=== PATIENT | male | born 1945 | race Caucasian/White ===

== ENCOUNTER → 2017-08-25 11:51 | Day surgery (SDC) | payer BC ==
[~2017-08-25 11:51] MED LIST: Flumazenil* 0.1 MG/ML 5 ML MDV ONE; Lidocaine 1% INJ* 10 MG/ML 30 ML SDV ONE; Midazolam* 1 MG/ML 10 ML VIAL (10 MG) ONE; Naloxone* 0.4 MG/ML 1 ML VIAL ONE; ceFAZolin 1 GM/10 ML flush(*) SYRINGE for pocket flush (cardiology) FLUSH ONE; ceFAZolin 2 GM PREMIX (*) 2 GM/50 ML BAG IVPB ONE; ceFAZolin 2 GM in NS PREMIX(*) 2 GM/100 ML BAG IVPB ONE; fentaNYL* 50 MCG/ML 2 ML VIAL (100 MCG VIAL) ONE
--- NOTE | 2017-08-27 02:43 | OP ---
CC: Jamee Jamison MD * DATE OF OPERATION: 08/25/17 - [facility] CATH DATE OF : 43 SURGEON: Cristhian Neal MD ANESTHESIA: Local anesthesia with conscious sedation. PRE-OP DIAGNOSES: ICD at elective replacement indicator, cardiomyopathy. POST-OP DIAGNOSES: ICD at elective replacement indicator, cardiomyopathy. OPERATIVE PROCEDURE: Dual-chamber ICD generator change. ESTIMATED BLOOD LOSS: Nil. COMPLICATIONS: None. INDICATIONS: The patient is a 72-year-old gentleman with a history of cardiomyopathy, history of ICD implantation in 2009. The patient has been followed by Dr. Jamison. The patient's ICD reached elective replacement indicator and generator change was recommended. DESCRIPTION OF PROCEDURE: The patient was brought to the operating room in a fasting state. Informed consent had been obtained prior to the procedure. All labs were reviewed. The patient was placed supine on the procedure table. His left deltopectoral area was cleaned and draped in the usual fashion. 1% lidocaine was used for local anesthesia. A 4 cm incision was made just superior to the ICD and blunt dissection was carried down to the fiber sheath and fiber sheath was opened and the device was removed from the pocket. The device was detached from the atrial and ventricular leads. The explanted device is a Medtronic model H805XXF, serial number [id number]. The leads were tested. The atrial lead had a P-wave sensitivity of 3.4, impedance 412 Ohms, threshold 0.9 volts at 0.5 msec. The ventricular lead and an R-wave sensitivity of 10.9, impedance 595 Ohms, threshold 0.7 volts at 0.5 milliseconds. A new generator was attached appropriately to the atrial ventricular leads. The new generator is a Medtronic model [id number], serial number [id number]. Device was placed in the pocket. The surgical incision was closed in three layers. The patient was returned to holding area in stable condition. [id number]/[facility] #: [id number] [facility]
== END | disposition home or self-care (01) ==
LOC: CHICATH 11:51
PROVIDERS: ATTEND Specialist
DX: Z45.02 Encounter for adjustment and management of automatic implantable cardiac defibrillator (principal); I42.9 Cardiomyopathy, unspecified; I47.2 Ventricular tachycardia; G47.33 Obstructive sleep apnea (adult) (pediatric); R55 Syncope and collapse; R60.9 Edema, unspecified; E78.2 Mixed hyperlipidemia; I10 Essential (primary) hypertension; I25.10 Atherosclerotic heart disease of native coronary artery without angina pectoris; I25.2 Old myocardial infarction; I71.2 Thoracic aortic aneurysm, without rupture; Z87.891 Personal history of nicotine dependence
CPT/HCPCS: 33263; 88300; C1721; J0690; J2250; J2310; J3010

== ENCOUNTER 2017-12-15 06:31 | Observation (INO) | payer BC ==
--- NOTE | 2017-12-12 02:22 | HP ---
CC: Dr. Fuentes * HISTORY AND PHYSICAL: DATE OF PLANNED ADMISSION AND SURGERY: 12/15/17 HISTORY OF PRESENT ILLNESS: Mr. Gonzalez is a 72-year-old white male, who is admitted with prostate enlargement, bladder outlet obstruction, recurrent episodes of prostatitis, for cystoscopy and transurethral resection of the prostate. I have been following Mr. Gonzalez for the last 13 years because of prostate enlargement and bladder outlet obstruction. In 2006, he was started on finasteride and has been maintained on both finasteride and tamsulosin for many years. He was doing fine until about 2 years ago when he started having recurrent episodes of acute prostatitis. He required several courses of antibiotics for treatment of the condition. The last episode occurred 3 months ago and again required a prolonged course of Bactrim. He was worked up with a cystoscopy, which showed a large obstructing prostate. Renal ultrasound was normal. Postvoid bladder ultrasound showed minimal postvoid residual. Because of the above history, the symptoms of bladder outlet obstruction but mostly because of the recurrent episodes of urinary tract infections in spite of being on full medical treatment for his prostate enlargement and obstruction , TURP was advised and accepted. PAST MEDICAL HISTORY AND SYSTEM REVIEW: The patient has a history of coronary artery disease and had required stents placement in 2006. He also had history of arrhythmias and syncope and has an AICD placed. He is followed by Dr. Jamison. He was seen in preoperative consultation and was cleared by Dr. Jamison and I am including a copy of her consultation note in the chart. Dr. Jamison feels that he is good a surgical candidate for the procedure without any additional cardiac workup or treatment. Regarding the AICD, she recommended placement of a magnet during the procedure to have it temporarily deactivated. The patient has history of hypertension and sleep apnea. MEDICATIONS: He is maintained on the following medications: 1. Losartan 50 mg daily. 2. Metoprolol 25 mg daily. 3. Nifedical 30 mg daily. 4. Aspirin 81 mg daily. In addition to the finasteride 5 mg and tamsulosin 0.4 mg daily. ALLERGIES: He reports having a reaction or allergy to NITROGLYCERIN and to HIGH - DOSE BETA BLOCKERS. PHYSICAL EXAMINATION GENERAL: Pleasant and healthy looking for his age. VITAL SIGNS: Blood pressure 130/70, pulse of 70, oxygen saturation on room air 98%. LUNGS: Clear. HEART: Regular and rhythmic. No murmurs. ABDOMEN: Soft. No masses. No tenderness and no CVA tenderness. EXTERNAL GENITALIA: Normal. RECTAL: Showed a moderately enlarged prostate with a nodule in the right lobe, but no induration. IMPRESSION: 1. Prostate enlargement and bladder outlet obstruction with recurrent episodes of prostatitis while on medical treatment. 2. Coronary artery disease, status post coronary stents in 2006. 3. History of ventricular arrhythmias, on beta blockers and status post placement of automatic implantable cardioverter-defibrillator. 4. Sleep apnea. 5. Hyperlipidemia. PLAN: For cystoscopy and transurethral resection of the prostate. I discussed the above plans in detail with the patient. Cardiology consultation was obtained and I am including a copy of Dr. Jamison's note with her recommendations especially regarding the AICD management. [id number]/[facility] #: [id number] [facility]
[~2017-12-15 06:31] MED LIST changes: +Buffered Lidocaine 0.9% SYRIN* 5 ML/SYR SYRINGE INTRADERM ONE; -Flumazenil* 0.1 MG/ML 5 ML MDV ONE; -Lidocaine 1% INJ* 10 MG/ML 30 ML SDV ONE; -Midazolam* 1 MG/ML 10 ML VIAL (10 MG) ONE; -Naloxone* 0.4 MG/ML 1 ML VIAL ONE; -ceFAZolin 1 GM/10 ML flush(*) SYRINGE for pocket flush (cardiology) FLUSH ONE; -ceFAZolin 2 GM PREMIX (*) 2 GM/50 ML BAG IVPB ONE; -ceFAZolin 2 GM in NS PREMIX(*) 2 GM/100 ML BAG IVPB ONE; -fentaNYL* 50 MCG/ML 2 ML VIAL (100 MCG VIAL) ONE
[2017-12-15] MEDS ORDERED: Lidocaine 2% PF * 5 ML VIAL ONE (07:15)
[2017-12-15] MEDS ORDERED: Midazolam* 1 MG/ML 5 ML VIAL (5 MG) ONE (07:15)
[2017-12-15] MEDS ORDERED: fentaNYL* 50 MCG/ML 2 ML VIAL (100 MCG VIAL) ONE (07:15)
[2017-12-15] MEDS ORDERED: Bupivacaine-MPF SPINAL* 7.5 MG/ML - 2ML AMP ONE (07:15)
[2017-12-15] MEDS ORDERED: cefTRIAXone(*) 2 GM ADDV.VIAL IVPB ONE (07:19)
[2017-12-15] MEDS ORDERED: EPHEDrine (Pressors)* 50 MG/ML VIAL ONE (07:59)
[2017-12-15] MEDS ORDERED: fentaNYL* 50 MCG/ML 2 ML VIAL (100 MCG VIAL) IV PRN (08:55)
[2017-12-15] MEDS ORDERED: oxyCODONE TAB* 5 MG TAB PO PRN (08:55)
[2017-12-15] MEDS ORDERED: Acetaminophen TAB* 325 MG PO PRN (08:55)
[2017-12-15] MEDS ORDERED: Naloxone* 0.4 MG/ML 1 ML VIAL IV PRN (08:55)
[2017-12-15] MEDS ORDERED: oxyCODONE/Acetamin 5/325 MG* TAB PO PRN (11:51)
[2017-12-15] MEDS ORDERED: Metoprolol Succinate XL TAB* 25 MG PO SCH (21:00)
[2017-12-15] MEDS ORDERED: Atorvastatin* 80 MG TAB PO SCH (21:00)
[2017-12-15] MEDS ORDERED: Losartan TAB* 25 MG PO SCH (21:00)
[2017-12-15] MEDS ORDERED: Finasteride TAB* 5 MG PO SCH (21:00)
[2017-12-15] MEDS ORDERED: NIFEdipine ER TAB* 30 MG PO SCH (21:00)
[2017-12-15] MEDS: Lidocaine 2% JELLY* 6 ML JELLY TOPICAL PRN (21:39)
[2017-12-16] MEDS: Lidocaine 2% JELLY* 6 ML JELLY TOPICAL PRN (00:31)
[2017-12-16] MEDS: Oxybutynin TAB* 5 MG PO PRN ×2 (03:08→09:46)
--- NOTE | 2017-12-16 03:24 | OP ---
CC: Dr. Fuentes * DATE OF OPERATION: 12/15/17 - ROOM #350 DATE OF : 43 SURGEON: Nawaf Mota MD ANESTHESIOLOGIST: Dr. Aston Goodman. ANESTHESIA: Spinal. PRE-OP DIAGNOSES: 1. Benign prostatic hyperplasia. 2. Bladder outlet obstruction due to above. 3. Recurrent episodes of prostatitis. POST-OP DIAGNOSES: 1. Benign prostatic hyperplasia. 2. Bladder outlet obstruction due to above. 3. Recurrent episodes of prostatitis. OPERATIVE PROCEDURE: 1. Cystoscopy. 2. Transurethral resection of the prostate. INDICATIONS FOR PROCEDURE: Mr. Gonzalez is a 72-year-old white male who has a long history of bladder outlet obstruction and prostate enlargement and has been maintained on tamsulosin and finasteride. Over the last 2 years, he has had recurrent episodes of acute prostatitis requiring several antibiotic courses. Cystoscopy showed large obstructing prostate. Postvoid bladder ultrasound showed minimal residual urine. Because of the above history, the obstructive symptoms, and mostly the recurrent episodes of urinary tract infections in spite of being on full medical treatment, TURP was advised and accepted. PATHOLOGY AT CYSTOSCOPY: The penile and bulbar urethrae looked normal. The prostatic urethra measured 3 cm in length and there was significant degree of obstruction by trilobar hyperplasia of the prostate with prominent median lobe and obstructing lateral lobes. Examination of the bladder showed moderate diffuse trabeculations. There were no suspicious bladder lesion seen. No calculi or diverticula were noted. The prostate adenoma was moderately avascular. DESCRIPTION OF PROCEDURE: After successful spinal anesthesia, the patient was placed in the lithotomy position and was prepped and draped for cystoscopy. Cystoscopy was performed. The bladder was carefully inspected and the above findings were noted. The resectoscope was then introduced inside the bladder. Mannitol sorbitol solution was used for irrigation and the inflow and outflow were adjusted to avoid overdistention of the bladder. The median lobe was resected first down to the level of the posterior bladder neck. The portions of the lateral lobes protruding inside the bladder neck were then resected circumferentially down to bladder neck fibers. The resectoscope was then positioned in the mid prostatic urethra and circumferential resection of the prostate adenoma tissue was then performed. The resectoscope was then positioned at the level of the veru. The left lateral lobe was then resected starting at 5 o'clock and proceeding anteriorly. The right lobe was resected next. The anterior tissue and the apical tissue were resected last. The bleeders were electrocoagulated and controlled. The limits of the resection were the bladder neck proximally, the veru distally, and the capsule circumferentially. The resected prostate tissue was then irrigated out and evacuated. At the completion of the resection, the prostatic fossa was wide open. The external sphincter, the veru, the capsule, the ureteral orifices, and the bladder wall were all intact. There was good hemostasis. There were no residual prostate chips in the bladder. There were no deep cuts into the capsule and no open sinuses and a very good hemostasis. The resectoscope was then removed and a size 22-[place] Polanco catheter was passed inside the bladder and the balloon inflated with 40 cc of water and the catheter was placed under gentle traction and taped to the right thigh of the patient. Irrigation yielded clear returns. The patient tolerated the procedure well and left the operating room in good condition. The blood loss was estimated at about 50 cc. The specimen was prostate chips. [id number]/[facility] #: [id number] [facility]ENTER[facility]
[2017-12-16] MEDS ORDERED: cefTRIAXone(*) 1 GM in NS 0.9% 50 ML* 50 ML IVPB ONE (07:00)
[2017-12-16] MEDS ORDERED: Ascorbic Acid TAB* 500 MG PO SCH (08:00)
[2017-12-16 08:23] VITALS: BP 126/60
[2017-12-16] MEDS ORDERED: GLUCOSAMINE PO SCH (09:00)
[2017-12-16] MEDS ORDERED: METHYLSULFONYLMETHANE PO SCH (09:00)
[2017-12-16] MEDS ORDERED: CHONDROITIN PO SCH (09:00)
--- NOTE | 2017-12-17 05:18 | DS ---
DISCHARGE SUMMARY: DATE OF ADMISSION: 12/15/17. DATE OF DISCHARGE: 12/16/17. FINAL DIAGNOSES: 1. Benign prostatic hyperplasia. 2. Bladder outlet obstruction due to above. 3. Recurrent episodes of acute prostatitis. 4. History of coronary artery disease. 5. Hypertension. 6. Status post placement of AICD. OPERATION: 1. Cystoscopy. 2. Transurethral resection of the prostate. HISTORY: Mr. Gonzalez is a 72-year-old white male with long history of a bladder outlet obstruction and prostate enlargement who has been maintained on tamsulosin and finasteride. Over the last 2 years, he started having recurrent episodes of acute prostatitis requiring several courses of antibiotics. Workup with the cystoscopy and urodynamic studies showed a large obstructive prostate and good detrusor function making him a good candidate for transurethral resection of the prostate. PAST MEDICAL HISTORY AND SYSTEM REVIEW: He gives history of coronary artery disease and had a stent placement in 2006. He has history of arrhythmia and syncope and had an AICD placed. He is hypertensive well controlled on medications. He has history of sleep apnea on CPAP. ALLERGIES: Patient reports having reaction or allergy to NITROGLYCERIN and to high doses of BETA-BLOCKERS. PHYSICAL EXAMINATION: Preoperative physical exam was normal. LABORATORY DATA: A preoperative lab work was normal. The patient was seen in preoperative consultation by Dr. Jamison, his casing flusher, who cleared him for surgery and gave a recommendation for the management of AICD intraoperatively. COURSE IN HOSPITAL: The patient was admitted the morning of his surgery. He underwent an uncomplicated transurethral resection of the prostate under spinal anesthesia. A magnet was placed on the AICD during the procedure and he was in normal sinus rhythm. He had a very smooth postoperative course. His urine was clear and did not have any fever. He complained of bladder spasms well controlled on oxybutynin. The patient is being discharged home on all his preoperative medications which are losartan 50 mg daily, metoprolol 25 mg daily, Nifedical 30 mg daily, finasteride 5 mg daily. He is given samples of VESIcare 5 mg daily as needed for bladder spasms. Pathology on the resected prostate tissue showed BPH, no malignancy. He will be seen in the office in 6 days for Polanco catheter removal. [id number]/[facility] #: [id number] [facility]ITAL[facility]
== END 2017-12-16 11:10 | disposition home or self-care (01) ==
LOC: OR 06:31 → SSU 10:55
PROVIDERS: ADMIT Urology; ATTEND Urology
PROC: 0VT08ZZ Resection of Prostate, Via Natural or Artificial Opening Endoscopic (ICD-10-PCS; principal; 2017-12-15 07:30)
DX: N40.1 Benign prostatic hyperplasia with lower urinary tract symptoms (principal); N13.8 Other obstructive and reflux uropathy; N41.0 Acute prostatitis; I10 Essential (primary) hypertension; Z95.810 Presence of automatic (implantable) cardiac defibrillator; I25.10 Atherosclerotic heart disease of native coronary artery without angina pectoris; Z95.5 Presence of coronary angioplasty implant and graft; E78.5 Hyperlipidemia, unspecified; G47.30 Sleep apnea, unspecified; Z79.899 Other long term (current) drug therapy; Z79.82 Long term (current) use of aspirin; Z88.8 Allergy status to other drugs, medicaments and biological substances; Z87.891 Personal history of nicotine dependence
CPT/HCPCS: 88305; A9270-GY; G0378; J0696; J2250; J3010

== ENCOUNTER → 2019-03-17 | Day surgery (SDC) | payer BC ==
[~2019-03-17] MED LIST changes: +Acetaminophen TAB* 325 MG PO PRN; -Buffered Lidocaine 0.9% SYRIN* 5 ML/SYR SYRINGE INTRADERM ONE; +Buffered Lidocaine 1% SYRIN* 1 ML/SYRINGE INTRADERM ONE; +DiMENhydriNATE IV* 50 MG/ML VIAL IV PUSH PRN; +Ketorolac INJ* 30 MG/ML 1 ML VIAL IV PRN; +Lactated Ringers 1000 ML Bag* 1,000 ML IV SCH; +Lidocaine 1% INJ* 10 MG/ML 30 ML SDV ONE; +Midazolam* 1 MG/ML 2 ML VIAL (2 MG) ONE; +Naloxone* 0.4 MG/ML 1 ML VIAL IV PRN; +PROCHLORPERAZINE INJ 5 MG/ML 2 ML VIAL IV PRN; +Propofol* 10 MG/ML 20 ML BTL ONE; +ceFAZolin 2 GM PREMIX in ORs 2 GM/50 ML BAG ONE; +fentaNYL* 50 MCG/ML 2 ML VIAL (100 MCG VIAL) IV PRN; +fentaNYL* 50 MCG/ML 2 ML VIAL (100 MCG VIAL) ONE; +oxyCODONE TAB* 5 MG TAB PO PRN
[2019-03-17 14:59] VITALS: BP 143/76
--- NOTE | 2019-03-17 17:52 | OP ---
Operative Report - Blank - Operative Report Date of Operation: 03/17/19 Note: Pre-OP Diagnoses: umbilical hernia Post-op Diagnosis: same Procedure: open umbilical hernia repair with mesh Surgeon: Joe Asst: Yobani Anethesia: Local JUAN Parra EBL: minimal IVF: 1300cc LR Specimen: none Drains: none
--- NOTE | 2019-03-17 21:58 | OP ---
CC: Dr. Huber Fuentes; [facility] * DATE OF OPERATION: 03/17/19 - SDS DATE OF : 43 SURGEON: Dilshad Diaz MD DATA ANALYST ETL DEVELOPER: ANESTHESIOLOGIST: Dr. Parra. ANESTHESIA: Local MAC. PRE-OP DIAGNOSIS: Umbilical hernia. POST-OP DIAGNOSIS: Umbilical hernia. OPERATIVE PROCEDURE: Open umbilical hernia repair with mesh. ESTIMATED BLOOD LOSS: Minimal. IV FLUIDS: 1400 cc of crystalloid fluid given. SPECIMEN: None. DESCRIPTION OF PROCEDURE: The patient identified in the preoperative area, marked, consent was signed. He was taken to the operating room, placed on the operating table in a supine position. Preoperative antibiotics were given. Sequential devices were placed on bilateral lower extremities. Gentle sedation was given. The patient's abdomen was clipped of hair and prepped and draped in standard surgical fashion and a time-out was performed. After injection of lidocaine periumbilically, an infraumbilical incision was made, this was deepened down to the anterior fascia inferiorly and we extended this laterally around the good lateral aspects of the fascia and then made a window around the umbilical skin. A Grandy drain was applied for this and then sharp dissection was carried out to free the umbilical skin from the hernia defect. Hernia defect was approximately 1.5 cm. We then made an extraperitoneal plane behind the anterior fascia that would encompass 4.3 cm Ventralex mesh. Once this was made, we placed the mesh in place, sutured the tails of the mesh inferiorly and superiorly and cut them at the edges. We then reapproximated the defect with 0 Vicryl sutures using two simple ones on the corner and one [id number] in the middle of it. The wound was then irrigated, the umbilical skin tacked down with a 2-0 Vicryl suture. Then, we closed the defect after irrigation and achieving hemostasis with 2-0 Vicryl followed by 3- 0 Vicryl at the subcuticular site followed by 4-0 Monocryl subcuticular suture. Steri-Strips and sterile dressing along with antibiotic ointment was applied. The patient tolerated the procedure well, was transferred to the PACU in stable condition. [id number]/[facility] #: [id number] [facility]ITAL[facility]
== END | disposition home or self-care (01) ==
LOC: OR 14:23
PROVIDERS: ATTEND Surgery
DX: K42.9 Umbilical hernia without obstruction or gangrene (principal); Z79.82 Long term (current) use of aspirin; I25.10 Atherosclerotic heart disease of native coronary artery without angina pectoris; I10 Essential (primary) hypertension; E78.5 Hyperlipidemia, unspecified; N40.0 Benign prostatic hyperplasia without lower urinary tract symptoms; G47.30 Sleep apnea, unspecified; Z87.891 Personal history of nicotine dependence
CPT/HCPCS: C1781; J0690; J2250; J2704; J3010

== ENCOUNTER 2019-12-09 10:41 | Inpatient (IN) ==
[2019-12-09] MEDS ORDERED: fentaNYL 100 mcg/2 ml 50 MCG/ML VIAL ONE (15:16)
[2019-12-09] MEDS ORDERED: Dexamethasone IV 4 MG/ML VIAL 1 ml VIAL ONE (15:46)
[2019-12-09] MEDS ORDERED: Ondansetron 4 mg VIAL 2 MG/ML 2 ml VIAL ONE (15:46)
[2019-12-09] MEDS ORDERED: Bupivacaine 0.5% SDV PF 30ML VIAL ONE (15:46)
[2019-12-09] MEDS ORDERED: EPHEDrine (Pressors) 50 MG/ML VIAL ONE (15:54)
[2019-12-09] MEDS ORDERED: Phenylephrine 40 mcg/mL 10mL (400mcg) SYRINGE ONE (15:54)
[2019-12-09] MEDS ORDERED: Lactulose 30 ml UDC PO PRN (16:30)
[2019-12-09] MEDS ORDERED: diPHENhydraMINE IV 50 MG/ML 1 ml VIAL (BENADRYL) IV PRN (16:30)
[2019-12-09] MEDS ORDERED: Ondansetron ODT 4 mg TAB 4 MG TAB PO PRN (16:30)
[2019-12-09] MEDS ORDERED: Ondansetron 4 mg VIAL 2 MG/ML 2 ml VIAL IV PRN (16:30)
[2019-12-09] MEDS ORDERED: diPHENhydraMINE 25 mg TAB PO PRN (16:30)
[2019-12-09] MEDS ORDERED: Morphine 2 MG/ML SYRINGE IV PRN (16:30)
[2019-12-09] MEDS ORDERED: Magnesium Hydroxide LIQ 30 ML UDC PO PRN (16:30)
[2019-12-09] MEDS ORDERED: oxyCODONE/Acetamin 5/325 mg TAB ONE (18:21)
[2019-12-09] MEDS: oxyCODONE/Acetamin 5/325 mg TAB PO PRN ×2 (18:22→23:21)
[2019-12-09] MEDS: Lactated Ringers 1000 ml BAG 1,000 ML IV SCH (18:44)
[2019-12-09] MEDS: Magnesium Hydroxide LIQ 30 ML UDC PO SCH (20:37)
[2019-12-10] MEDS: ceFAZolin 1 GM ADVAN(*) 1 GM in NS 0.9% 50 ML 50 ML IVPB SCH ×3 (00:50→15:33)
[2019-12-10 05:17] LABS: Hematocrit 34 % (42-52); Hemoglobin 11.7 g/dL (14.0-18.0); Mean Platelet Volume 7.1 fL (7.4-10.4); Platelet Count 238 10^3/uL (150-450)
[2019-12-10] MEDS: Lactated Ringers 1000 ml BAG 1,000 ML IV SCH (05:34)
[2019-12-10 05:43] LABS: BUN/Creatinine Ratio 19.1 (8-20); Calcium 8.6 mg/dL (8.6-10.3); EGFR African American 94.7 (>60); EGFR Non-African American 78.2 (>60); Potassium 4.4 mmol/L (3.5-5.0)
[2019-12-10] MEDS: Magnesium Hydroxide LIQ 30 ML UDC PO SCH (08:09)
[2019-12-10] MEDS ORDERED: NS 0.9% 500 ml BAG 500 ML IV ONE (08:50)
[2019-12-10] MEDS ORDERED: Vitamin THERAPEUTIC TAB PO SCH (09:00)
[2019-12-10 15:23] VITALS: BP 107/58
== END 2019-12-10 17:50 | disposition home health service (06) | DRG 301 ==
LOC: INTOOBSV 10:41 → AA 10:41 → SSU 16:30
PROVIDERS: ADMIT Orthopaedic Surgery Adult Reconstructive Orthopaedic Surgery; ATTEND Orthopaedic Surgery Adult Reconstructive Orthopaedic Surgery

== ENCOUNTER 2023-09-04 11:41 | Observation (INO) ==
[2023-09-04] MEDS ORDERED: Tranexamic Acid 1 GM/100ML BAG 2,000 MG/200 ML BAG IV ONE (12:27)
[2023-09-04] MEDS ORDERED: ceFAZolin 2 GM in NS PREMIX 2 GM/100 ML BAG IVPB ONE (12:27)
[2023-09-04 12:40] LABS: Rapid COVID-19 Molecular Undetected (Undetected)
[2023-09-04] MEDS ORDERED: ROPIVACAINE 5 MG/ML 30 ML BTL (0.5%) ONE (15:24)
[2023-09-04] MEDS ORDERED: Propofol 10 MG/ML 20 ML BTL ONE ×3 (15:41→19:38)
[2023-09-04] MEDS ORDERED: Midazolam 2 mg/2 ml VIAL 1 mg/ml 2 ml VIAL (2 mg) ONE (15:47)
[2023-09-04] MEDS ORDERED: Ondansetron ODT 4 mg TAB 4 MG TAB PO PRN (16:33)
[2023-09-04] MEDS ORDERED: Magnesium Hydroxide LIQ 30 ML UDC PO PRN (16:33)
[2023-09-04] MEDS ORDERED: Lactulose 30 ml UDC PO PRN (16:33)
[2023-09-04] MEDS ORDERED: Polyethylene Glycol 3350 17 GM PACKET PO PRN (18:00)
[2023-09-04] MEDS ORDERED: fentaNYL 100 mcg/2 ml 50 MCG/ML VIAL ONE ×3 (18:49→20:28)
[2023-09-04] MEDS ORDERED: Naloxone 0.4 mg VIAL 0.4 mg/ml 1 ml VIAL IV PRN (20:24)
[2023-09-04] MEDS ORDERED: HYDROmorphone 1 MG/1 ML SYRINGE IV PRN (20:25)
[2023-09-04] MEDS ORDERED: Ondansetron 4 mg VIAL 2 MG/ML 2 ml VIAL IV PRN (20:25)
[2023-09-04] MEDS: fentaNYL 100 mcg/2 ml 50 MCG/ML VIAL IV PRN (20:30)
[2023-09-04] MEDS ORDERED: Acetaminophen IV 1 GM/100ML 1,000 MG/100 ML BAG IV ONE (20:58)
[2023-09-04] MEDS: Acetaminophen IV 1 GM/100ML 1,000 MG/100 ML BAG IV PRN (21:01)
[2023-09-04] MEDS: Lactated Ringers 1000 ml BAG 1,000 ML IV SCH ×2 (21:40→21:57)
[2023-09-04] MEDS: Magnesium Hydroxide LIQ 30 ML UDC PO SCH (21:57)
[2023-09-04] MEDS: Buffered Lidocaine 1% SYRIN 1 ml INTRADERM ONE (21:57)
[2023-09-04] MEDS: Ondansetron 4 mg VIAL 2 MG/ML 2 ml VIAL IV PRN (21:58)
[2023-09-04] MEDS: Morphine 2 MG/ML SYRINGE IV PRN (22:00)
[2023-09-05] MEDS: ceFAZolin 1 GM ADVAN 1 GM in NS 0.9% 50 ML 50 ML IVPB SCH (01:20)
[2023-09-05 06:22] LABS: Hematocrit 36.2 % (38-53); Hemoglobin 12.6 g/dL (13.2-16.3); Mean Platelet Volume 7.5 fL (7.5-11.2); Platelet Count 225 10^3/uL (150-450)
[2023-09-05 06:41] LABS: Calcium 8.6 mg/dL (8.6-10.3); Creatinine, Serum 0.84 mg/dL (0.67-1.17); Potassium 4.4 mmol/L (3.5-5.0); eGFR CKD-EPI 88.7 (>60)
[2023-09-05] MEDS: Vitamin THERAPEUTIC TAB PO SCH (08:13)
[2023-09-05 10:01] VITALS: BP 117/62
== END 2023-09-05 16:00 | disposition home or self-care (01) ==
LOC: SSU 11:41 → OR 11:41
PROVIDERS: ADMIT Orthopaedic Surgery Adult Reconstructive Orthopaedic Surgery; ATTEND Orthopaedic Surgery Adult Reconstructive Orthopaedic Surgery

== ENCOUNTER 2023-09-08 11:10 | Observation (INO) ==
[2023-09-08 14:02] LABS: ABS Basophils 0.1 10^3/uL (0.0-0.1); ABS Eosinophils 0.1 10^3/uL (0.0-0.5); ABS Lymphocytes 0.5 10^3/uL (1.0-4.8); ABS Monocytes 0.6 10^3/uL (0.0-1.1); ABS Neutrophils 7.5 10^3/uL (1.5-7.6); Eosinophil % 1.4 %; Hematocrit 35.1 % (38-53); Hemoglobin 12.1 g/dL (13.2-16.3); Lymphocyte % 5.3 %; Mean Corpuscular Hemoglobin 30.7 pg (27-33); Mean Corpuscular Hgb Conc 34.4 g/dL (31-36); Mean Platelet Volume 7.5 fL (7.5-11.2); Platelet Count 282 10^3/uL (150-450); Red Blood Count 3.95 10^6/uL (4.06-5.63); Red Cell Distribution Width 14.2 % (12-17); White Blood Count 8.7 10^3/uL (3.6-10.2)
[2023-09-08 15:08] LABS: Albumin 3.9 g/dL (3.2-5.2); Albumin/Globulin Ratio 1.7 (1-3); Calcium 9.1 mg/dL (8.6-10.3); Creatinine, Serum 0.88 mg/dL (0.67-1.17); Globulin 2.3 g/dL (2-4); Magnesium 2.1 mg/dL (1.9-2.7); Potassium 4.7 mmol/L (3.5-5.0); Total Bilirubin 0.9 mg/dL (0.2-1.0); Total Protein 6.2 g/dL (6.4-8.9); eGFR CKD-EPI 87.5 (>60)
[2023-09-08 16:40] LABS: Activated Partial Thrombo Time 31.3 seconds (26.0-38.0); INR 1.26 (0.83-1.13)
[2023-09-08] MEDS: Iodixanol (CONTRAST) 320 MG/ML 100 ML SDV IV ONE (16:46)
[2023-09-08 17:03] LABS: Albumin 4.1 g/dL (3.2-5.2); Albumin/Globulin Ratio 1.7 (1-3); Calcium 9.2 mg/dL (8.6-10.3); Creatinine, Serum 0.88 mg/dL (0.67-1.17); Direct Bilirubin 0.2 mg/dL (0.03-0.18); Globulin 2.4 g/dL (2-4); HDL Cholesterol 48.9 mg/dL; Indirect Bilirubin 0.9 mg/dL (0.3-1.0); Potassium 4.3 mmol/L (3.5-5.0); Total Bilirubin 1.1 mg/dL (0.2-1.0); Total Protein 6.5 g/dL (6.4-8.9); eGFR CKD-EPI 87.5 (>60)
[2023-09-08 22:43] LABS: Urine Appearance Clear; Urine Bilirubin Negative (Negative); Urine Blood Negative (Negative); Urine Color Yellow; Urine Glucose Negative (Negative); Urine Ketones Trace (Negative); Urine Nitrite Negative (Negative); Urine Protein Trace (Negative); Urine Specific Gravity >1.050 (1.002-1.030); Urine Urobilinogen Negative (Negative)
[2023-09-08 23:03] LABS: HDL Cholesterol 41.5 mg/dL
[2023-09-09 08:03] LABS: ABS Basophils 0.1 10^3/uL (0.0-0.1); ABS Eosinophils 0.3 10^3/uL (0.0-0.5); ABS Lymphocytes 0.6 10^3/uL (1.0-4.8); ABS Monocytes 0.5 10^3/uL (0.0-1.1); Hematocrit 32.3 % (38-53); Hemoglobin 11.4 g/dL (13.2-16.3); Lymphocyte % 9.3 %; Mean Corpuscular Hemoglobin 31.1 pg (27-33); Mean Corpuscular Hgb Conc 35.1 g/dL (31-36); Mean Corpuscular Volume 88.5 fL (80-97); Mean Platelet Volume 7.3 fL (7.5-11.2); Platelet Count 256 10^3/uL (150-450); Red Blood Count 3.65 10^6/uL (4.06-5.63); Red Cell Distribution Width 13.9 % (12-17); White Blood Count 6.5 10^3/uL (3.6-10.2)
[2023-09-09 08:14] LABS: Calcium 8.5 mg/dL (8.6-10.3); Creatinine, Serum 0.77 mg/dL (0.67-1.17); Potassium 4.2 mmol/L (3.5-5.0); eGFR CKD-EPI 91.1 (>60)
[2023-09-09] MEDS ORDERED: Senna TAB 8.6 mg TAB PO PRN (17:56)
[2023-09-09] MEDS: Lactated Ringers 1000 ml BAG 1,000 ML IV SCH (18:12)
[2023-09-10 16:27] VITALS: BP 152/87
[2023-09-10 18:05] LABS: Urine Appearance Turbid; Urine Bilirubin Negative (Negative); Urine Blood 3+ (Negative); Urine Color Colorless; Urine Glucose Negative (Negative); Urine Ketones Negative (Negative); Urine Nitrite Negative (Negative); Urine Protein Negative (Negative); Urine Specific Gravity 1.007 (1.002-1.030); Urine Urobilinogen Negative (Negative); Urine pH 6.5 (5.0-8.0)
[2023-09-10 18:52] LABS: Urine Bacteria 1+ /HPF (Absent); Urine Red Blood Cell 3+(>10/hpf) /HPF (0-Trace); Urine White Blood Cell 3+(>20/hpf) /HPF (0-Trace)
== END 2023-09-10 18:15 | disposition home or self-care (01) ==
LOC: EDHOLD 11:10 → ED 11:10 → MEDTELE 09-09 12:24
PROVIDERS: ADMIT Hospitalist; ATTEND Hospitalist